=== PATIENT | male | born 1970 | race Caucasian/White ===

== ENCOUNTER 2017-12-22 13:07 | Emergency (ER) | payer OTHER ==
[2017-12-22 13:17] VITALS: BP 155/85; PULSE 84; RESP 16; TEMP 97.3; O2SAT 99
--- NOTE | 2017-12-22 13:28 | C.PDOC ---
History Of Present Illness Rajeev Engel is a 47 year old male, with no significant past medical history, who presents to the emergency department complaining for evaluation of left thigh and knee pain ongoing since yesterday. Patient reports a mechanical fall on ice and noted some bruising on left thigh. The pain is localized over the left upper leg and worst with ambulation. He denies any headache, LOC, syncope, neck pain, motor/sensory deficits, deformity or swelling to left leg. No further medical complaints. PMD: None provided. Time Seen by Provider: 12/22/17 13:13 Chief Complaint (Nursing): Lower Extremity Problem/Injury History Per: Patient History/Exam Limitations: no limitations Onset/Duration Of Symptoms: Days (x1) Current Symptoms Are (Timing): Still Present - Knee Description Of Injury: Fell Past Medical History Reviewed: Historical Data, Nursing Documentation, Vital Signs Vital Signs: Last Vital Signs Temp 97.3 F L 12/22/17 13:15 Pulse 84 12/22/17 13:15 Resp 16 12/22/17 13:15 BP 155/85 H 12/22/17 13:15 Pulse Ox 99 12/22/17 13:35 - Medical History PMH: No Chronic Diseases Surgical History: No Surg Hx Family History: States: Unknown Family Hx - Social History Hx Tobacco Use: No Hx Alcohol Use: No Hx Substance Use: No - Immunization History Hx Tetanus Toxoid Vaccination: No Hx Influenza Vaccination: No Hx Pneumococcal Vaccination: No Review Of Systems Musculoskeletal: Positive for: Leg Pain (left thigh and knee). Negative for: Neck Pain Neurological: Negative for: Headache, Other (LOC) Physical Exam - Physical Exam Appears: Well, Non-toxic, No Acute Distress Skin: Normal Color, Warm, Dry Head: Atraumatic, Normacephalic Eye(s): bilateral: PERRL Nose: No Deformity, No Tenderness Oral Mucosa: Moist Neck: Trachea Midline, No Midline Cervical Tenderness, No Paracervical Tenderness, No Step Off Deformity, Supple Chest: Symmetrical, No Deformity, No Tenderness Cardiovascular: Rhythm Regular, No Murmur Respiratory: No Decreased Breath Sounds, No Accessory Muscle Use, No Stridor, No Wheezing Gastrointestinal/Abdominal: Soft, No Tenderness, No Distention, No Guarding Back: No Vertebral Tenderness, No Paraspinal Tenderness Extremity: Normal ROM (LLE), Tenderness (diffused tenderness to lateral aspect of left femur, and lateral aspect of left knee.), No Deformity (Left knee), No Swelling (Left knee), Other (Diffuse ecchymoses medial aspect left knee. Small palpable left lateral thigh hematoma.No palpable deformity, no neurovascular deficits.) Neurological/Psych: Oriented x3, Normal Speech, Normal Motor, Normal Sensation, Normal Reflexes ED Course And Treatment O2 Sat by Pulse Oximetry: 99 (RA) Pulse Ox Interpretation: Normal - Other Rad lEFT HIP AND PELVIS X-Ray: Interpreted by Me, Viewed By Me Interpretation: NO ACUTE FX OR DISLOCATION LEFT FEMUR AND KNEE X-Ray: Interpreted by Me, Viewed By Me Interpretation: (-) ACUTE FX OR DISLOCATION Progress Note: Initial Impression: trauma. Initial Plan: Knee 3 views LT [RAD] , Ultram 50 mg PO, Femur Min 2 views LT [RAD], Hip Min 2V w/ Pelvis LT [RAD]. On re-evaluation, pt is afebrile, hemodynamicaly stable. NOn-toxic. Ambulatory in ED with stable gait. Head: AT/NC. LLE: exam c/w lateral thigh hematima, left knee ecchymoses r/o contusion. FAROM of LLE, no neurovascular deficits. neurologicaly intact. Imaging review and appears normal. Pt advised on course of ds. ref. to f/u with PMD, Ortho in 2-3 days for re-eavl. return if any new changes. Disposition Counseled Patient/Family Regarding: Studies Performed, Diagnosis, Need For Followup - Disposition Referrals: [facility] [Outside] [place] Rizo MD [Staff Provider] - Disposition: HOME/ ROUTINE Disposition Time: 13:30 Condition: STABLE Additional Instructions: RICE- REST, ICE, COMPRESSION, ELEVATION TYLENOL FOR PAIN NEED AVOID PROLONG WALKING FOR 1 WEEK FOLLOW UP WITH PMD, ORTHOPEDIST IN 2-3 DAYS FOR RE-EVALUATION. RETURN TO ED IF ANY NEW CHANGES. Instructions: Contusion (DC) Forms: [facility] ([place]) - Clinical Impression Clinical Impression: Hematoma, Knee contusion - Scribe Statement The provider has reviewed the documentation as recorded by the Scribe Gautam Montalvo All medical record entries made by the Scribe were at my direction and personally dictated by me. I have reviewed the chart and agree that the record accurately reflects my personal performance of the history, physical exam, medical decision making, and the department course for this patient. I have also personally directed, reviewed, and agree with the discharge instructions and disposition.
--- NOTE | 2017-12-22 13:43 | RAD ---
PROCEDURE: Left Knee Radiographs. HISTORY: COMPARISON: None available. FINDINGS: BONES: No acute displaced fracture. JOINTS: No dislocation. JOINT EFFUSION: No significant joint effusion. OTHER FINDINGS: Soft tissue swelling. IMPRESSION: Soft tissue swelling. No acute displaced fracture, dislocation, or significant joint effusion identified. If symptoms persist, or if there is continued clinical concern, x-ray follow-up in 7-10 days should be considered.
--- NOTE | 2017-12-22 13:46 | RAD ---
Indication: Injury Left hip with pelvis Comparison: None available Findings: No acute displaced fracture or dislocation identified. Question sclerosis of the femoral heads. Sacroiliac joints appear intact. Mild constipation. Soft tissues appear unremarkable. Pelvic calcifications, likely phleboliths. No evidence of radiopaque foreign body. Impression: No acute displaced fracture or dislocation evident. If high clinical index of suspicion, suggest cross-sectional imaging for further evaluation. Otherwise, if symptoms persist or if there is continued clinical concern, x-ray follow-up in 7-10 days should be considered. Question sclerosis of the femoral heads (Right greater than left), favored artifactual however correlate clinically to exclude possibility of avascular necrosis.
--- NOTE | 2017-12-22 13:49 | RAD ---
Left femur radiographs Indication: Injury Comparison: None Findings: No acute displaced fracture. No dislocation. No evidence of radiopaque foreign body. No sclerosis evident. Impression: No acute displaced fracture or subluxation identified. If symptoms persist or if there is continued clinical concern, x-ray follow-up in 7-10 days should be considered.
== END 2017-12-22 14:05 | disposition home or self-care (01) ==
LOC: C.ER 13:07
DX: S80.02XA Contusion of left knee, initial encounter (principal); W00.0XXA Fall on same level due to ice and snow, initial encounter